=== PATIENT | female | born 1960 | race Caucasian/White ===

== ENCOUNTER 2016-11-13 16:16 | Emergency (ER) | payer SELFPAY ==
[~2016-11-13] VITALS: Ht 167.6 cm; Wt 65.8 kg
[2016-11-13 16:28] VITALS: BP 157/85; PULSE 70; RESP 16; TEMP 97.6; O2SAT 100
--- NOTE | 2016-11-13 17:18 | NUR ---
Placed in room 4. Placed on [employer], blood pressure machine and pulse oximeter. To gown for exam. Side rails up. Report recevied.
--- NOTE | 2016-11-13 17:20 | NUR ---
Pt brought by daughter, [id number], pt states she called 911 but refused transportation, pt complained of epigastric pain radiating to the chest and back, denies pain at this time, skin pink and warm, ambulatory, cap refill <3, VS WNL, no nausea or vomiting noted.
--- NOTE | 2016-11-13 17:25 | NUR ---
Dr Storey at bedside examining patient
[2016-11-13 19:26] VITALS: BP 128/79; PULSE 57; RESP 16; TEMP 97.6; O2SAT 98
--- NOTE | 2016-11-13 19:26 | NUR ---
Patient given written and verbal discharge instructions and verbalizes understanding. ER MD discussed with patient the results and treatment provided. Patient in stable condition. ID arm band removed. Rx of given. Patient educated on pain management and to follow up with PMD. Pain Scale 0/10 . Opportunity for questions provided and answered.
== END 2016-11-13 19:26 | disposition home or self-care (01) ==
LOC: SED 16:16
DX: K29.70 Gastritis, unspecified, without bleeding (principal); Z88.5 Allergy status to narcotic agent
CPT/HCPCS: 93005; 99283